=== PATIENT | female | born 1960 | race Caucasian/White ===

== ENCOUNTER → 2020-04-01 13:12 | Outpatient (CLI) | payer MEDICAID | END | disposition home or self-care (01) | LOC: D.MRI 13:12 | PROVIDERS: ATTEND Psychiatry & Neurology Neurology | DX: M54.12 Radiculopathy, cervical region (principal); M19.90 Unspecified osteoarthritis, unspecified site; G58.9 Mononeuropathy, unspecified ==

== ENCOUNTER → 2020-05-12 14:05 | Outpatient (CLI) | payer MEDICAID ==
[2020-05-12 14:53] LABS: BILIRUBIN NEGATIVE (NEGATIVE); KETONE NEGATIVE (NEGATIVE); NITRITE POSITIVE (NEGATIVE); UROBILINOGEN NORMAL mg/dL (< 2)
[2020-05-12 14:54] LABS: BACTERIA MANY HPF (NONE SEEN); EPITHELIAL CELLS 0-5 /hpf (0-5); WHITE CELLS - URINE >50 HPF (0-4)
== END | disposition home or self-care (01) ==
LOC: D.LAB 14:05
PROVIDERS: ATTEND Family Medicine
DX: R32 Unspecified urinary incontinence (principal); W19.XXXA Unspecified fall, initial encounter

== ENCOUNTER → 2021-01-12 09:48 | Outpatient (CLI) | payer MEDICAID | END | disposition home or self-care (01) | LOC: D.US 09:48 | PROVIDERS: ATTEND Family Medicine | DX: M79.604 Pain in right leg (principal); M79.605 Pain in left leg ==